=== PATIENT | male | born 1970 | race African-American/Black ===

== ENCOUNTER 2018-04-01 20:44 | Emergency (ER) | payer MEDICAID ==
[~2018-04-01] VITALS: Ht 170.2 cm; Wt 68.0 kg
[2018-04-01 21:10] VITALS: BP 147/99
--- NOTE | 2018-04-01 21:10 | NUR ---
TO BED # 8 AMBULATORY, REPORT GIVEN TO SONDRA FINNEY, ON SUICIDAL PRECAUTION
--- NOTE | 2018-04-01 21:15 | NUR ---
48/M PRESENTS TO ED, C/O "FEELING SUICIDAL." PT REPORTS THAT HE WAS "[place], DIDN'T KNOW WHERE TO GO, SAW THE HOSPITAL SIGNS AND DECIDED TO GO THERE." PT REPORTS PARANOID IDEAS, STATING THAT HE THOUGHT "PEOPLE WERE TRYING TO GET ME." PT AOX4, GCS 15, AMBULATORY, RR EVEN AND UNLABORED. PT BELONGINGS CHECKED AND SENT TO SECURITY. ENVIRONMENT CHECKED, SAFETY MEASURES ENSURED. HX BIPOLAR, SCHIZOPHRENIA, DEPRESSION, HTN
[2018-04-01 22:02] LABS: BASOPHILS % (AUTO) 0.5 % (0.0-2.0); EOSINOPHILS % (AUTO) 0.6 % (0.0-4.0); HEMATOCRIT 39.5 % (36-52); HEMOGLOBIN 12.7 g/dL (12.0-18.0); LYMPHOCYTES # (AUTO) 1.5 K/uL (2.0-11.5); LYMPHOCYTES % (AUTO) 23.1 % (20.5-51.1); MEAN CORPUSCULAR HEMOGLOBIN 27 pg (27-31); MEAN CORPUSCULAR HGB CONC 32 g/dL (33-37); MEAN CORPUSCULAR VOLUME 83.8 fL (80-94); MONOCYTES # (AUTO) 0.4 K/uL (0.8-1.0); MONOCYTES % (AUTO) 6.3 % (1.7-9.3); NEUTROPHILS # (AUTO) 4.5 K/uL (1.8-7.7); NEUTROPHILS % (AUTO) 69.5 % (42.2-75.2); PLATELET COUNT (AUTO) 267 K/uL (140-450); RED BLOOD CELL COUNT(AUTO) 4.72 MIL/uL (4.20-6.10); RED CELL DISTRIBUTION WIDTH 15.3 % (11.6-13.7); WHITE BLOOD COUNT (AUTO) 6.5 K/uL (4.8-10.8)
[2018-04-01 22:23] LABS: PROTHROMBIN TIME 10.3 secs (10.8-13.4)
[2018-04-01 23:01] LABS: ANION GAP 10.2 (8-16); CARBON DIOXIDE 27.7 mmol/L (21-32); CHLORIDE 106 mmol/L (98-107); GLUCOSE 103 mg/dL (74-106); POTASSIUM 3.9 mmol/L (3.5-5.1); SODIUM SERUM 140 mmol/L (136-145); UREA NITROGEN, BLOOD 11 mg/dL (7-18)
[2018-04-01 23:02] LABS: ACETAMINOPHEN < 0.5 ug/ml (10-30); ALBUMIN 3.6 g/dL (3.4-5.0); ASPARTATE AMINOTRANSFERASE 18 U/L (15-37); CREATININE 0.5 mg/dL (0.7-1.3); GFR ARICAN-AMERICAN 230 mL/min (>90); SALICYLATE < 2.8 mg/dL (2.8-20.0); TOTAL BILIRUBIN 0.2 mg/dL (0.0-1.0)
[2018-04-01 23:28] LABS: BARBITURATE, URINE NEGATIVE ng/ml (NEG <=200); BENZODIAZEPINE, URINE NEGATIVE ng/mL (NEG <=200); COCAINE, URINE NEGATIVE ng/mL (NEG <=300); OPIATE, URINE NEGATIVE ng/mL (NEG <=2000); PHENCYCLIDINE SCREEN,URINE NEGATIVE ng/mL (NEG <=25)
[2018-04-01 23:29] LABS: CANNABINOID, URINE POSITIVE ng/mL (NEG <=50)
--- NOTE | 2018-04-01 23:47 | NUR ---
TELEPSYCH INITIATED PER DR. SYLVESTER
--- NOTE | 2018-04-02 | NUR ---
PT SLEEPING COMFORTABLY IN BED, RR EVEN AND UNLABORED. SAFETY MEASURES ENSURED.
--- NOTE | 2018-04-02 00:58 | NUR ---
TELEPSYCH, DR. MELTON, SPOKE WITH INCUBATOR TENDERREG NOBLES
--- NOTE | 2018-04-02 01:08 | NUR ---
TELEPSYCH, DR. MELTON, SPEAKING WITH PATIENT VIA REMOTE COMMUNICATION
--- NOTE | 2018-04-02 01:27 | NUR ---
TELEPSYCH, DR. MELTON, SPOKE WITH PANEL MACHINE OPERATORREG NOBLES
--- NOTE | 2018-04-02 01:28 | NUR ---
Dr Morillo completed Telepsych evaluation. Recommends d/c in AM, Rx script for Seroquel 50 mg qhs x 10 days, and a referral to [facility]. Informed Dr Kapoor of all of the above.
--- NOTE | 2018-04-02 02:00 | NUR ---
PT SLEEPING COMFORTABLY, AROUSABLE TO NAME, VSS, RR EVEN AND UNLABORED. PT DENIES ANY PAIN OR HALLUCINATIONS AT THIS TIME. SAFETY MEASURES ENSURED. ALL NEEDS MET AT THIS TIME.
--- NOTE | 2018-04-02 04:54 | NUR ---
PT SLEEPING COMFORTABLY, AROUSABLE TO NAME, VSS, RR EVEN AND UNLABORED. SAFETY MEASURES ENSURED. ALL NEEDS MET AT THIS TIME.
--- NOTE | 2018-04-02 05:00 | NUR ---
Pt report given to REG OLSON. Transfer of care at this time.
[2018-04-02 06:10] VITALS: BP 127/74
--- NOTE | 2018-04-02 06:10 | NUR ---
Patient discharged with v/s stable. Written and verbal after care instructions given and explained. Patient alert, oriented and verbalized understanding of instructions. Ambulatory with steady gait. All questions addressed prior to discharge. ID band removed. Patient advised to follow up with PMD. Rx of Seroquel given. Patient educated on indication of medication including possible reaction and side effects. Opportunity to ask questions provided and answered. Refuses offer of residential placement. Given list of available shelters in surrounding areas.
== END 2018-04-02 06:10 | disposition home or self-care (01) ==
LOC: MED 20:44
DX: F31.9 Bipolar disorder, unspecified (principal); F19.20 Other psychoactive substance dependence, uncomplicated; R45.851 Suicidal ideations; F17.200 Nicotine dependence, unspecified, uncomplicated; Z59.0 Homelessness
CPT/HCPCS: 36415; 80053; 80305; 81002; 85025; 85610; 99283; G0480; G0482